=== PATIENT | male | born 1955 | race Caucasian/White ===

== ENCOUNTER 2024-03-18 07:55 | Emergency (ER) | payer MEDICARE, OTHER, SELFPAY ==
[2024-03-18 08:03] VITALS: BP 129/91
--- NOTE | 2024-03-18 08:12 | ED.GENMED ---
History of Present Illness
General
Chief Complaint: Abdominal Pain
Source: patient
Exam Limitations: none
Time Seen by Provider: 03/18/24 08:11
Nursing documentation reviewed up to this point in time: agreed with
History of Present Illness
History of Present Illness:
68-year-old male with past medical history of testicular cancer lymph node removal heart murmur presents to the ER for evaluation. Patient reports he started 3 to 4 days ago with pain with urination and difficulty urination. He describes this as a
burning but also feels that he is not emptying his bladder completely. He also has had some difficulty moving his bowels. He does feel pain in his in his lower abdomen and slightly in the right lower quadrant
Review of Systems
Review of Systems
Allergies reviewed?: Yes
All Other Systems: ROS reviewed and negative except as documented in HPI and ROS
Constitutional: Reports no symptoms; Denies fever, fatigue or chills
ABD/GI: Reports abdominal pain and constipated
: Reports other (difficulty urinating and feels that he is not emptying his bladder )
Musculoskeletal: Reports no symptoms; Denies neck pain
Skin: Reports no symptoms
Neurological: Reports no symptoms
Psychiatric: Reports no symptoms
Phy Exam
General Physical Exam
General Presentation: no apparent distress
General age: appears stated age
General Skin: warm and dry
General Habitus: normal
General Mental: alert
General Hydration: appears well hydrated
Cardiovascular Exam
Cardiovascular Exam: regular rate/rhythm and systolic murmur ( )
Pulmonary Exam
Pulmonary Exam: lungs clear and no respiratory distress
Gastrointestinal Exam
Gastrointestinal Exam: soft and other (palpation of lower abd suprapubic mildly tender minimum rlq tenderness )
Neurological Exam
Neurological Exam: alert and oriented x3
Musculoskeletal Exam
Musculoskeletal Exam: full ROM
Skin Exam
Skin Exam: normal color and warm/dry
Course
Orders/Labs/Results
Orders:
Orders
03/18/24 08:30
Bladder Scan- Treatment ONCE
IV Insert/Care/Rem.- Treatment PRN
0.9% Sodium Chloride 1000 ml [Nss] 1,000 ml IV BOLUS
03/18/24 08:43
Complete Blood Count/With Diff Urgent
Comprehensive Metabolic Panel Urgent
Urinalysis Reflex To Culture Urgent
Date Specimen was Collected: 03/18/24
Time Specimen was Collected: 08:33
03/18/24 08:59
Estrada [Estrada Placement- Treatment] ONCE
Reason for insertion: Acute Retention
03/18/24 09:04
Lidocaine 2% [Lidocaine Uro-Jet 2%] 1 syringe .ROUTE .[facility]
03/18/24 09:32
METFORMIN HCl [Glucophage] 500 mg PO NOW STA
03/18/24 09:33
CT Abd/pel Without Iv Or Oral Urgent
Comment:
Reason For Exam: dysuria/retention now /w estrada
Abnormal Lab Results
03/18/24 03/18/24
08:43 11:04
MPV 11.7 H fL
(7.4-10.4)
Absolute Lymphs (auto) 0.6 L 10^3/uL
(1.2-3.4)
Absolute Monos (auto) 0.8 H 10^3/uL
(0.1-0.6)
Neutrophils % 79.1 H %
(42.2-75.2)
Lymphocytes % 8.8 L %
(20.5-51.1)
Monocytes % 10.9 H %
(1.7-9.3)
Glucose 391 H mg/dl
(70-99)
Urine Ketones 1+ A
(Negative)
Urine Glucose 3+ A
(Negative)
POC Glucose 292 H mg/dl
(70-99)
03/18/24 08:43
03/18/24 08:43
Vital Signs
Initial and Last Documented VS:
Initial Vital Signs
Temp Pulse Resp BP Pulse Ox
98.6 F 88 16 129/91 98
03/18/24 08:03 03/18/24 08:03 03/18/24 08:03 03/18/24 08:03 03/18/24 08:03
Last Documented Vital Signs
Temp Pulse Resp BP Pulse Ox
98.6 F 65 7 114/69 95
03/18/24 08:03 03/18/24 09:30 03/18/24 09:30 03/18/24 09:00 03/18/24 09:30
Air Support Control Officer consulted with Physician
Air Support Control Officer consulted with physician?: Yes
Name of Physician Consulted: Ilya
MDM/Problems Addressed
Differential Diagnosis Includes:
Not limited to UTI urinary retention less likely appendicitis by obstruction
MDM/Problems Addressed:
As documented patient is a 60-year-old male who presented to the ER complaining of dysuria for the past several days and describes he is having difficulty getting his urine stream out and does not feel that he is completely emptying his bladder.
Denies any fever chills on exam he is tender in the suprapubic area questionable right lower quadrant minimally. Bladder scan shows that patient is retaining 800 cc of urine after he voided Estrada catheter was placed draining clear yellow urine.
Urine does not appear infected. On reexam of abdomen after Estrada was placed patient is now nontender at all. This was likely urinary retention. CAT scan was done does show mild urinary bladder wall thickening and perivesical inflammatory fat
stranding with a Estrada catheter in place nonspecific, no other acute process.
patient in addition has an elevated blood sugar of 391 and was recently started on metformin but did not take it today. He was given fluids and given his dose of metformin we will check sugar however will DC home with family doctor follow-up and
urology follow-up.
Repeat bs 292. Patient educated on diabetic diet. He was recently prescribed metformin but had no diet education. Patient however is very well-appearing. As planned will DC with Estrada bag with urology follow-up I did review with and
patient to call his family doctor tomorrow for reevaluation of blood sugars they were not given a blood sugar machine at home however will have family doctor reevaluate blood sugars and in addition I recommended the patient ask for diabetic education
*Radiology
Radiology exam reviewed: radiology read reviewed
*Pulse Oximetry
Patient hypoxic: no
*Critical Care Note
Total Time (30-74mins, 75-104mins- exclusive of procedures): Not Applicable
ED Attending Note
-
Portions of this chart may have been created with voice recognition software.� Occasional wrong word or��sound alike� substitutions may have occurred due to the inherent limitations of voice recognition software.
Discharge Plan
Departure
Patient Disposition: Home (Routine Discharge)
Date of Disposition: 03/18/24
Time of Disposition: 11:12
Patient with high blood pressure during this ER visit?: No
Condition: Fair
Covid-19: Not Applicable
Discharge Problem:
Acute urinary retention, Acute hyperglycemia
Instructions: How to Care for Your Estrada Catheter, Male, High Blood Sugar, Adult ED, Urinary retention - Discharge instructions
Prescriptions:
No Action
metformin 500 mg Tablet
500 mg PO DAILY
atorvastatin 20 mg Tablet
20 mg PO HS
Referrals:
Dominic Cotto MD [Active] -
Perry Vlaadez MD [Family Provider] -
Activity Restrictions/Additional Instructions:
As discussed you were given a leg bag for Estrada catheter leave Estrada catheter in place until you are seen by urology. Call tomorrow morning to make an appointment in the next 2 days. Also as discussed your blood sugar was elevated. You were given
1 dose of your metformin here in the ER and given IV fluid. Continue to drink a lot of water avoid high sugary foods as discussed. Call family doctor tomorrow for appointment this week for further evaluation of your blood sugar and further
diabetic education. Return if any worsening of symptoms if Estrada catheter is not draining properly nausea vomiting fever chills back pain increased thirst vomiting weakness or any further concerns.
Interventions
Interventions:
*Risk Screen - Suicide Last Done: 03/18/24 09:36
*General Assessment Last Done: 03/18/24 09:00
*Neglect/Abuse Screening Last Done: 03/18/24 09:00
ED- Fall Risk Assessment Last Done: 03/18/24 09:00
*ED COVID-19 Vaccine History Last Done: 03/18/24 09:00
LQ-Oswpur-Phurwwkwll Assessment Last Done: 03/18/24 09:36
Discharge Date and Time
Print Language: SWEDISH
[2024-03-18 08:25] VITALS: BMI 25.9
[2024-03-18 08:54] VITALS: BP 116/76
[2024-03-18] MEDS: NSS 1000 IV (08:55)
[2024-03-18 09:00] VITALS: BP 114/69
[2024-03-18 09:05] LABS: % Basophils 0.4 % (0-2); % Eosinophils 0.4 % (0-6); % Immature Granulocytes 0.4 % (0-0.5); % Lymphocytes 8.8 % (20.5-51.1); % Monocytes 10.9 % (1.7-9.3); % Neutrophils 79.1 % (42.2-75.2); Absolute Lymphocytes 0.6 10^3/uL (1.2-3.4); Absolute Monocytes 0.8 10^3/uL (0.1-0.6); Absolute Neutrophils 5.8 10^3/uL (1.4-6.5); Hematocrit 42.3 % (39.0-52.0); Hemoglobin 14.4 g/dL (13.0-18.0); Mean Corpuscular Volume 82.3 fL (80.0-94.0); Mean Platelet Volume 11.7 fL (7.4-10.4); Nucleated Red Blood Cells % 0 % (-); Platelet Count 147 10^3/uL (130-400); Red Blood Cell Count 5.14 10^6/uL (4.70-6.10); Red Cell Dist. Width 12.9 % (11.5-14.5); White Blood Cell Count 7.3 10^3/uL (4.8-10.8)
[2024-03-18 09:07] LABS: Urine Albumin Negative (Neg - Trace); Urine Bilirubin Negative (Negative); Urine Character Clear (Clear); Urine Color Yellow; Urine Glucose 3+ (Negative); Urine Ketone 1+ (Negative); Urine Leukocyte Negative (Negative); Urine Nitrite Negative (Negative); Urine Occult Blood Negative (Negative); Urine Specific Gravity 1.015 (<1.030); Urine Urobilinogen Negative (Neg - 1+)
[2024-03-18 09:13] LABS: ALT (SGPT) 33 U/L (0-50); AST (SGOT) 36 U/L (17-59); Albumin 4.5 g/dl (3.5-5.0); Alkaline Phosphatase 105 U/L (38-126); Blood Urea Nitrogen 17 mg/dl (9-20); Calcium 9.4 mg/dl (8.4-10.2); Carbon Dioxide 26 mmol/L (22-30); Chloride 99 mmol/L (98-107); Estimated Creatinine Clearance 94 ml/min; Glucose 391 mg/dl (70-99); Potassium 4.3 mmol/L (3.5-5.1); Sodium 137 mmol/L (135-145); Total Bilirubin 1.2 mg/dl (0.2-1.3); Total Protein 6.5 g/dl (6.3-8.2); eGFR > 60.00
[2024-03-18] MEDS: GLUCOPHAGE 500 MG PO (10:10)
[2024-03-18 11:06] VITALS: BP 121/80
[2024-03-18 11:06] LABS: Glucose - Point of Care 292 mg/dl (70-99)
== END 2024-03-18 12:10 | disposition home or self-care (01) ==
LOC: EMR 07:55
PROVIDERS: Nurse Practitioner; EMERGENCY PHYSICIAN Emergency Medicine; FAMILY PHYSICIAN Internal Medicine
DX: R33.9 Retention of urine, unspecified (principal); R73.9 Hyperglycemia, unspecified; R10.31 Right lower quadrant pain
CPT/HCPCS: 99284; 96374; 74176; 80053; 81003; 82962; 85025

== ENCOUNTER → 2024-03-22 08:47 | Day surgery (SDC) | payer MEDICARE, OTHER, SELFPAY ==
[2024-03-24 00:08] LABS: PSA Total 6.1 ng/mL (0.0-4.0)
== END ==
LOC: SDSPAT 08:47
PROVIDERS: ATTENDING PHYSICIAN Specialist; FAMILY PHYSICIAN Internal Medicine; OTHER PHYSICIAN Internal Medicine Cardiovascular Disease
DX: Z01.810 Encounter for preprocedural cardiovascular examination (principal); Z01.812 Encounter for preprocedural laboratory examination
CPT/HCPCS: 93005; 36415; 84153; 84154

== ENCOUNTER 2024-03-28 06:59 | Day surgery (SDC) | payer MEDICARE, OTHER, SELFPAY ==
[2024-03-22 09:29] VITALS: BMI 25.6
--- NOTE | 2024-03-22 15:35 | PTCARENOTE ---
Abnormal EKG reviewed by Dr Pang, no further action requested.
[2024-03-28] VITALS (14 sets, daily range): BP systolic 107–127; BP diastolic 67–88; BMI 25.6
[2024-03-28 12:32] LABS: Glucose - Point of Care 307 mg/dl (70-99)
[2024-03-28] MEDS: NOVOLOG vial 3 UNITS SC (13:30)
[2024-03-28] MEDS: TRANSDERM-SCOP 1 PATCH TRANSDERM (13:32)
[2024-03-28] MEDS: NORMOSOL-R/PLASMALYTE-A 1000 IV ×2 (13:33→18:09)
[2024-03-28] MEDS: EMEND 40 MG PO (14:01)
[2024-03-28 14:04] LABS: Glucose - Point of Care 277 mg/dl (70-99)
[2024-03-28 15:42] LABS: Glucose - Point of Care 237 mg/dl (70-99)
[2024-03-28] MEDS: NOVOLOG vial 1 UNITS SC (16:00)
[2024-03-28] MEDS: Pyridium 200 MG PO ×2 (16:12→23:18)
[2024-03-28] MEDS: DILAUDID 0.25 MG IV ×2 (16:27→16:48)
--- NOTE | 2024-03-28 17:47 | PTCARENOTE ---
1545 Addendum... Monitor displays Sinus yamel 40's with inverted Twaves now, not noted on pre-op EKG. Patient asymptomatic see vital sign flow record. Dr Adames aware evaluated patient in PACU no further orders at this time.
--- NOTE | 2024-03-28 18:10 | PTCARENOTE ---
Patient received from PACU in stretcher, transferred to bed; IVF infusing; Patient on room air; CBI infusing, urine red punch color and free of clots at this time; Call hernandez within reach; Patient oriented to room and unit; Bed in lowest position,
wheels locked; Assessment ongoing
[2024-03-28] MEDS: NOVOLOG FLEXPEN-LOW RESISTANCE 1 UNITS SC (18:14)
[2024-03-28 18:15] LABS: Glucose - Point of Care 182 mg/dl (70-99)
[2024-03-28] MEDS: COLACE 100 MG PO (18:19)
[2024-03-28] MEDS: DETROL LA 4 MG PO (18:30)
[2024-03-28 21:39] LABS: Glucose - Point of Care 332 mg/dl (70-99)
[2024-03-28] MEDS: NOVOLOG FLEXPEN 4 UNITS SC (22:13)
[2024-03-28] MEDS: TYLENOL 650 MG PO (23:22)
[2024-03-28] MEDS: XALATAN OPHTHALMIC SOLUTION 1 DROP OPHTH (23:24)
[2024-03-29 00:19] LABS: Glucose - Point of Care 296 mg/dl (70-99)
[2024-03-29 03:21] VITALS: BP 116/75
[2024-03-29] MEDS: NORMOSOL-R/PLASMALYTE-A 1000 IV (04:38)
[2024-03-29 07:15] VITALS: BP 103/68
[2024-03-29] MEDS: LIPITOR 20 MG PO (08:07)
[2024-03-29] MEDS: COLACE 100 MG PO ×2 (08:07→11:15)
[2024-03-29] MEDS: TIMOPTIC 0.5% OPHTHALMIC SOLUTION 1 DROP BOTH EYES (08:07)
[2024-03-29 08:11] LABS: Glucose - Point of Care 226 mg/dl (70-99)
[2024-03-29] MEDS: GLUCOPHAGE 1000 MG PO (08:11)
[2024-03-29] MEDS: NOVOLOG FLEXPEN-LOW RESISTANCE 2 UNITS SC (08:11)
[2024-03-29] MEDS: Pyridium 200 MG PO (08:17)
--- NOTE | 2024-03-29 10:30 | CM ---
Met with pt at bedside
Pt reports he lives with his in a ranch style home; 2 steps to enter
Retired junior high school teacher, independent, driving
DME - none
SNF/HH - denies past hx
Has ride home with
PCP - Renaldo Valadez
Pharm - [facility]
Plan - anticipate home no needs
[2024-03-29 11:10] VITALS: BP 113/64
[2024-03-29 11:19] LABS: Glucose - Point of Care 337 mg/dl (70-99)
[2024-03-29] MEDS: NOVOLOG FLEXPEN-LOW RESISTANCE 4 UNITS SC (11:19)
--- NOTE | 2024-03-29 11:52 | W.PN.URO.CBU ---
Today's Communication / Plan
-
voiding trial in progress
Assessment / Plan
-
stable
voiding trial in progress
Diagnosis
-
Date of Service: March 29, 2024
-
Patient Diagnosis: BPH with Urinary Retention
Post Op Day: 1 s/p TURP
Subjective
-
Parra out; not yet felt urge to void
Objective
-
Vital Signs
Temp Pulse Resp BP Pulse Ox
97.3 F 55 18 113/64 95
03/29/24 11:10 03/29/24 11:10 03/29/24 11:10 03/29/24 11:10 03/29/24 11:10
Intake and Output
03/28/24 03/29/24 03/30/24
06:59 06:59 06:59
Intake Total 1715 / 1715
Output Total 4000 / 4000 275 / 275
Balance -2285 / -2285 -275 / -275
Intake:
Oral fluids 540 / 540
IV fluids (Total) 1175 / 1175
Normosl 275 / 275
Output:
Urine, Voided 275 / 275
True Urine Output from CBI 4000 / 4000
Physical Exam
-
General - well developed, well nourished, no acute distress
Chest - clear bilaterally
Abdomen - soft, non-tender, positive bowel sounds, no CVAT, no incisional pain or distention
[2024-03-29] MEDS: LASIX 20 MG PO (11:57)
[2024-03-29] MEDS: FLOMAX 0.4 MG PO (11:57)
[2024-03-29 20:12] LABS: Hepatitis C Antibody Negative (Negative)
== END 2024-03-29 13:26 | disposition home or self-care (01) ==
LOC: SDS 06:59
PROVIDERS: ATTENDING PHYSICIAN Specialist
DX: N40.1 Benign prostatic hyperplasia with lower urinary tract symptoms (principal); N41.1 Chronic prostatitis; R33.8 Other retention of urine
CPT/HCPCS: 52601; 88305; 82962; 86803

== ENCOUNTER 2024-10-09 17:32 | Outpatient (RCR) | payer MEDICARE, OTHER, SELFPAY ==
[2024-10-09 13:49] LABS: Glucose - Point of Care 130 mg/dl (70-99)
[2024-10-09 14:38] LABS: Glucose - Point of Care 101 mg/dl (70-99)
== END 2024-10-09 23:59 | disposition home or self-care (01) ==
LOC: CRHB 17:32
PROVIDERS: ATTENDING PHYSICIAN Internal Medicine Cardiovascular Disease
DX: Z95.2 Presence of prosthetic heart valve (principal); Z95.1 Presence of aortocoronary bypass graft; I25.10 Atherosclerotic heart disease of native coronary artery without angina pectoris
CPT/HCPCS: 82962; G0422; G0423

== ENCOUNTER 2024-11-07 16:50 | Outpatient (RCR) | payer MEDICARE, OTHER, SELFPAY ==
[2024-10-15 15:28] LABS: Glucose - Point of Care 208 mg/dl (70-99)
[2024-10-15 16:21] LABS: Glucose - Point of Care 136 mg/dl (70-99)
[2024-10-17 15:47] LABS: Glucose - Point of Care 169 mg/dl (70-99)
[2024-10-17 16:50] LABS: Glucose - Point of Care 82 mg/dl (70-99)
[2024-10-17 17:03] LABS: Glucose - Point of Care 80 mg/dl (70-99)
[2024-10-17 17:17] LABS: Glucose - Point of Care 98 mg/dl (70-99)
[2024-10-19 16:01] LABS: Glucose - Point of Care 198 mg/dl (70-99)
[2024-10-19 17:00] LABS: Glucose - Point of Care 173 mg/dl (70-99)
[2024-10-22 15:58] LABS: Glucose - Point of Care 192 mg/dl (70-99)
[2024-10-22 17:01] LABS: Glucose - Point of Care 134 mg/dl (70-99)
[2024-10-24 15:55] LABS: Glucose - Point of Care 154 mg/dl (70-99)
[2024-10-24 16:56] LABS: Glucose - Point of Care 142 mg/dl (70-99)
[2024-10-26 16:01] LABS: Glucose - Point of Care 204 mg/dl (70-99)
[2024-10-26 17:05] LABS: Glucose - Point of Care 157 mg/dl (70-99)
[2024-10-29 15:51] LABS: Glucose - Point of Care 193 mg/dl (70-99)
[2024-10-29 16:49] LABS: Glucose - Point of Care 107 mg/dl (70-99)
[2024-11-07 15:55] LABS: Glucose - Point of Care 167 mg/dl (70-99)
[2024-11-07 17:00] LABS: Glucose - Point of Care 71 mg/dl (70-99)
[2024-11-07 17:20] LABS: Glucose - Point of Care 87 mg/dl (70-99)
== END 2024-11-08 13:17 | disposition home or self-care (01) ==
LOC: CRHB 16:50
PROVIDERS: ATTENDING PHYSICIAN Internal Medicine Cardiovascular Disease
DX: Z95.2 Presence of prosthetic heart valve (principal); I25.10 Atherosclerotic heart disease of native coronary artery without angina pectoris (principal); Z95.1 Presence of aortocoronary bypass graft
CPT/HCPCS: 82962; G0422; G0423

== ENCOUNTER 2025-01-27 22:30 | Emergency (ER) | payer MEDICARE, OTHER, SELFPAY ==
[2025-01-27 22:36] VITALS: BP 158/96
[2025-01-27 23:07] LABS: Hematocrit 41.2 % (39.0-52.0); Hemoglobin 13.7 g/dL (13.0-18.0); Mean Corp Hgb Conc. 33.3 g/dL (33.0-37.0); Mean Corpuscular Volume 80.6 fL (80.0-94.0); Nucleated Red Blood Cells % 0 % (-); Platelet Count 170 10^3/uL (130-400); Red Cell Dist. Width 13.8 % (11.5-14.5)
[2025-01-27 23:32] LABS: ALT (SGPT) 16 U/L (0-50); AST (SGOT) 24 U/L (17-59); Albumin 4.2 g/dl (3.5-5.0); Alkaline Phosphatase 67 U/L (38-126); Blood Urea Nitrogen 18 mg/dl (9-20); Calcium 9.4 mg/dl (8.4-10.2); Carbon Dioxide 25 mmol/L (22-30); Chloride 109 mmol/L (98-107); Glucose 150 mg/dl (70-99); Potassium 4.2 mmol/L (3.5-5.1); Sodium 139 mmol/L (135-145); Total Protein 6.4 g/dl (6.3-8.2); eGFR > 60.00
[2025-01-27] MEDS: ZOFRAN 4 MG IV (23:42)
[2025-01-28 00:43] VITALS: BMI 28.0
--- NOTE | 2025-01-28 01:16 | ED.GENMED ---
History of Present Illness
General
Chief Complaint: Headache
Course
Orders/Labs/Results
Orders:
Orders
01/27/25 23:02
Complete Blood Count/With Diff Urgent
Comprehensive Metabolic Panel Urgent
01/27/25 23:09
Ondansetron Injectable [Zofran] 4 mg .ROUTE .[facility]
01/27/25 23:41
Ondansetron Injectable [Zofran] 4 mg IV NOW STA
01/28/25 00:02
CT Facial Bones W/ Iv Contrast Urgent
Reason For Exam: swelling and reddness left eye
CT Head W/o Iv Contrast Urgent
Reason For Exam: headache and vomiting
Abnormal Lab Results
01/27/25
23:02
MCH 26.8 L pg
(27.0-31.0)
MPV 10.7 H fL
(7.4-10.4)
Absolute Monos (auto) 0.7 H 10^3/uL
(0.1-0.6)
Lymphocytes % 17.9 L %
(20.5-51.1)
Monocytes % 9.6 H %
(1.7-9.3)
Chloride 109 H mmol/L
(98-107)
Glucose 150 H mg/dl
(70-99)
01/27/25 23:02
01/27/25 23:02
Vital Signs
Initial and Last Documented VS:
Initial Vital Signs
Temp Pulse Resp BP Pulse Ox
98.4 F 63 20 158/96 100
01/27/25 22:36 01/27/25 22:36 01/27/25 22:36 01/27/25 22:36 01/27/25 22:36
Last Documented Vital Signs
Temp Pulse Resp BP Pulse Ox
98.4 F 63 20 158/96 100
01/27/25 22:36 01/27/25 22:36 01/27/25 22:36 01/27/25 22:36 01/27/25 22:36
*Pulse Oximetry
SaO2: 100
Oxygen Mode of Delivery: Room air
ED Attending Note
-
Portions of this chart may have been created with voice recognition software.� Occasional wrong word or��sound alike� substitutions may have occurred due to the inherent limitations of voice recognition software.
Discharge Plan
Departure
Prescriptions:
No Action
metformin 500 mg Tablet
1,000 mg PO DAILY
Rx Instructions:
dinnertime
atorvastatin 20 mg Tablet
20 mg PO DAILY
Uribel Tabs 81.6-0.12-10.8 mg tablet
1 tab PO QID Qty: 20 1RF
tamsulosin 0.4 mg capsule
0.4 mg PO HS Qty: 10 0RF
latanoprost 0.005 % Drops
1 drp OPHTHALMIC (EYE) QPM
timolol maleate
0.5 % BOTH EYES 1XD
Referrals:
Perry Valadez MD [Family Provider, Internal Medicine]
Interventions
Interventions:
*Risk Screen - Suicide Last Done: 01/27/25 22:36
*General Assessment Last Done: 01/27/25 22:36
*Neglect/Abuse Screening Last Done: 01/27/25 22:36
*ED- Fall Risk Assessment Last Done: 01/27/25 22:36
*ED COVID-19 Vaccine History Last Done: 01/27/25 22:36
ED- Neurological Assessment Last Done: 01/28/25 00:44
Discharge Date and Time
Print Language: BHUTANESE
[2025-01-28] MEDS: TORADOL 30 MG IV (02:05)
[2025-01-28] MEDS: NSS 1000 IV (02:05)
[2025-01-28 02:11] VITALS: BP 136/80
--- NOTE | 2025-01-28 03:03 | ED.GENMED ---
History of Present Illness
General
Chief Complaint: Headache
Source: patient and spouse
Exam Limitations: none
Time Seen by Provider: 01/28/25 01:17
Nursing documentation reviewed up to this point in time: agreed with except (Patient denies eye swelling)
History of Present Illness
History of Present Illness:
The patient is a 69-year-old male presenting with blurry vision in the left eye, which began at around 3 PM. The patient described the feeling as if there was something in his eye and rubbed it, causing irritation. He has a history of cataract
surgery and glaucoma, for which he uses eye drops regularly in the morning and at night. At 6 PM, he experienced a headache above the left eye described as a brow-like pain. The headache was not experienced before and was described as unusual by the
patient. Left brow headache associated with nausea and vomiting. He denies vision loss. The patient denied any fever or congestion and reported that his checked his temperature at home. No neck pain was noted. He mentioned that the headache
persists, although it has improved slightly but not entirely gone. The patient was out in humid and hot weather over the past 2 days.
No prior history of headaches.
He denies weakness or numbness. No difficulty with ambulation. He has not had a rash. No falls or injuries.
Past History
Past History
ED Past Medical History: CAD, Cancer (Testicular, melanoma), Hypercholesterolemia, NIDDM, Valvular disease (Aortic stenosis, status post aortic valve replacement) and Other (Glaucoma)
ED Past Surgical History: Cardiac (Aortic valve replacement and CABG x 1), Urological (Prostatectomy, orchiectomy) and Other ( melanoma removal from shoulder)
Social History
Tobacco: Non-smoker
Alcohol: Occasional
Personal:
Living: with family
Employment: Retired
Family History
Family History: Other (Noncontributory)
Phy Exam
Physical Exam
Physical Exam:
GENERAL: 69-year-old gentleman appears stated age, bright and alert, pleasant, appears in no acute distress. is accompanying.
EYE: pupils equal and reactive. Extraocular muscles intact. Anicteric. There is no lid edema nor erythema. Discs are sharp bilaterally. Visual acuity grossly intact.
NECK: Supple, nontender, no meningismus, no significant adenopathy.
ENT: posterior pharynx is clear, oral mucosa is moist. TM clear b/l, nares patent.
CARDIAC: Regular rate and rhythm. no murmur.
LUNGS: Clear breath sounds bilaterally, no acute respiratory distress, no wheezes/rales/rhonchi
ABDOMEN: Soft, nondistended, without focal tenderness, no r/g, no cvat. normoactive BS.
NEUROLOGICAL: Alert and oriented x3, no focal neuro deficits. Gait is steady.
SKIN: Warm and dry, normal color, skin intact. No rash.
MUSCULOSKELETAL: No C/C/E. peripheral pulses are full and equal b/l. No palpable tenderness.
PSYCH: Normal and appropriate interaction.
Course
Orders/Labs/Results
Orders:
Orders
01/27/25 23:02
Complete Blood Count/With Diff Urgent
Comprehensive Metabolic Panel Urgent
01/27/25 23:09
Ondansetron Injectable [Zofran] 4 mg .ROUTE .[facility]
01/27/25 23:41
Ondansetron Injectable [Zofran] 4 mg IV NOW STA
01/28/25 00:02
CT Facial Bones W/ Iv Contrast Urgent
Reason For Exam: swelling and reddness left eye
CT Head W/o Iv Contrast Urgent
Reason For Exam: headache and vomiting
01/28/25 01:53
0.9% Sodium Chloride 1000 ml [Nss] 1,000 ml IV BOLUS
Ketorolac [Toradol] 30 mg IV NOW STA
01/28/25 03:04
Prochlorperazine [Compazine] 10 mg .ROUTE .[facility]
01/28/25 03:09
Prochlorperazine [Compazine] 5 mg IV NOW STA
Abnormal Lab Results
01/27/25
23:02
MCH 26.8 L pg
(27.0-31.0)
MPV 10.7 H fL
(7.4-10.4)
Absolute Monos (auto) 0.7 H 10^3/uL
(0.1-0.6)
Lymphocytes % 17.9 L %
(20.5-51.1)
Monocytes % 9.6 H %
(1.7-9.3)
Chloride 109 H mmol/L
(98-107)
Glucose 150 H mg/dl
(70-99)
01/27/25 23:02
01/27/25 23:02
Vital Signs
Initial and Last Documented VS:
Initial Vital Signs
Temp Pulse Resp BP Pulse Ox
98.4 F 63 20 158/96 100
01/27/25 22:36 01/27/25 22:36 01/27/25 22:36 01/27/25 22:36 01/27/25 22:36
Last Documented Vital Signs
Temp Pulse Resp BP Pulse Ox
98.4 F 67 14 134/69 97
01/27/25 22:36 01/28/25 03:59 01/28/25 03:59 01/28/25 03:59 01/28/25 03:59
MDM/Problems Addressed
Differential Diagnosis Includes:
The Differential Diagnosis includes, in no particular order and is not limited to:
1. Ophthalmic migraine
2. Sinusitis
3. Heat-induced headache
4. Glaucoma exacerbation
5. Allergic conjunctivitis
6. Acute closed-angle glaucoma
7. Tension-type headache
8. Migraine headache
9. Hypertension-related headaches
10. Diabetic retinopathy (unlikely but to be considered in long-term management)
MDM/Problems Addressed:
History and exam most consistent with migraine versus sinus headache, focal left frontal. Reassuring the patient is afebrile, no focal neurodeficits.
May have been brought on by exposure to extremely hot, humid weather over the past [address] of the head result is pending. Reviewed by myself, appears unremarkable.
Nausea has resolved after an IV dose of Zofran.
Labs are unremarkable.
Will trial an IV dose of Toradol.
*Radiology
Radiology exam reviewed: radiology read reviewed
*Pulse Oximetry
SaO2: 98
Oxygen Mode of Delivery: Room air
Patient hypoxic: no
*Critical Care Note
Total Time (30-74mins, 75-104mins- exclusive of procedures): Not Applicable
Update Note
Update Note:
03:45
Patient is headache free, comfortable, eager to be discharged to home.
CT of the head is unremarkable.
Labs are unremarkable.
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
ED Attending Note
-
Portions of this chart may have been created with voice recognition software.� Occasional wrong word or��sound alike� substitutions may have occurred due to the inherent limitations of voice recognition software.
Discharge Plan
Departure
Patient Disposition: Home (Routine Discharge)
Date of Disposition: 01/28/25
Time of Disposition: 03:47
Patient with high blood pressure during this ER visit?: No
Condition: Good
Discharge Problem:
Acute headache
Instructions: Headache, Adult (DC)
Prescriptions:
No Action
metformin 500 mg Tablet
1,000 mg PO DAILY
Rx Instructions:
dinnertime
atorvastatin 20 mg Tablet
20 mg PO DAILY
Uribel Tabs 81.6-0.12-10.8 mg tablet
1 tab PO QID Qty: 20 1RF
tamsulosin 0.4 mg capsule
0.4 mg PO HS Qty: 10 0RF
latanoprost 0.005 % Drops
1 drp OPHTHALMIC (EYE) QPM
timolol maleate
0.5 % BOTH EYES 1XD
Referrals:
Perry Valadez MD [Family Provider, Internal Medicine] - Call in 1-3 days for appt
Activity Restrictions/Additional Instructions:
Call your real estate coordinator today for prompt follow-up.
Interventions
Interventions:
*Risk Screen - Suicide Last Done: 01/27/25 22:36
*General Assessment Last Done: 01/27/25 22:36
*Neglect/Abuse Screening Last Done: 01/27/25 22:36
*ED- Fall Risk Assessment Last Done: 01/27/25 22:36
*ED COVID-19 Vaccine History Last Done: 01/27/25 22:36
*Nursing Disposition Last Done: 01/28/25 03:59
ED- Neurological Assessment Last Done: 01/28/25 00:44
Discharge Date and Time
Discharge Date/Time: 01/28/25 04:01
Print Language: ALBANIAN
[2025-01-28] MEDS: COMPAZINE 5 MG IV (03:10)
[2025-01-28 03:59] VITALS: BP 134/69
== END 2025-01-28 04:01 | disposition home or self-care (01) ==
LOC: EMR 22:30
PROVIDERS: Emergency Medicine; EMERGENCY PHYSICIAN Emergency Medicine; FAMILY PHYSICIAN Internal Medicine
DX: R51.9 Headache, unspecified (principal); I25.10 Atherosclerotic heart disease of native coronary artery without angina pectoris; E78.00 Pure hypercholesterolemia, unspecified; E11.9 Type 2 diabetes mellitus without complications; Z85.820 Personal history of malignant melanoma of skin; Z95.2 Presence of prosthetic heart valve; Z95.1 Presence of aortocoronary bypass graft
CPT/HCPCS: 96374; 96375; 99284; 96361; 70450; 70487; 80053; 85025; Q9967